=== PATIENT | male | born 1970 | race Caucasian/White ===

== ENCOUNTER 2023-01-23 08:51 | Emergency (ER) | payer BC, OTHER ==
--- OUTSIDE RECORDS SUMMARY | 2023-01-23 08:53 | XMS REPORT | Continuity of Care Document ---
:1970 Author Organization [facility] t Address [address] [place] [address] Care Team Providers Name Role Phone PCP, PATIENT DOES NOT HAVE A Primary Care Physician Unavaila MADY Aparicio Attending Clinician Unavailable Mady Parks MD Attending Clinician Payers Payer Name Policy Type Policy Number Effective Date Expiration Date [facility] [id number] 2022 PPO/POS II 00:00:00 Problems This patient has no known problems. Allergies, Adverse Reactions, Alerts Allergy Allergy Status Severity Reaction(s) Onset Inactive Treating Comm ents Source Name Type Date Date Clinician NO KNOWN Drug Active [facility] Social [facility] Social Habit Start Date Stop Date Quantity Comments Source Sex Assigned At [birth year] [facility] 00:00:00 00:00:00 [facility] Smoking Status Start Date Stop Date Source Tobacco smoking consumption [facility] Medications This patient has no known medications. Procedures This patient has no known procedures. Encounters Start End Encounter Admission Attending Care Care Encounter Source Date/Time Date/Time Type Type Clinicians Facility Department ID 2022-10-07 2022-10-07 Emergency X [facility] ERT [id number] 23:00:00 23:01:00 [facility] 2022-10-07 2022-10-07 Emergency [facility] [id number] [facility] 23:00:00 23:01:00 Mady ABDALLA [id number] [facility] [id number] [facility] [id number] [facility] [address] Results This patient has no known results.
[2023-01-23] MEDS ORDERED: KETOROLAC 30 MG/ML INJ ONE (09:30)
[2023-01-23] MEDS ORDERED: NA CHLORIDE 0.9% 1,000 ML ONE (09:30)
[2023-01-23 09:48] LABS: Absolute Lymphocytes (CBC) 1.9 K/uL (0.7-4.9); Lymphocytes % 16.7 % (15.3-44.8); MCV 98.6 fL (80-100); MPV 8.1 fL (7.6-11.3); RBC Red Blood Cell Count 4.67 M/uL (4.33-5.43)
[2023-01-23 10:03] LABS: SARS-CoV-2 Antigen Rapid Res Negative (Negative)
[2023-01-23 10:04] LABS: Albumin 4.2 g/dL (3.4-5.0); Bilirubin Total 0.7 mg/dL (0.2-1.0); Potassium 3.7 mEq/L (3.5-5.1); Protein, Total 8.5 g/dL (6.4-8.2)
[2023-01-23 10:40] LABS: Specific Gravity 1.024 (1.005-1.030); Urine Bilirubin NEGATIVE (Negative); Urine Blood Negative (Negative); Urine Clarity Clear (Clear); Urine Color Light-Yellow (Yellow); Urine Glucose NEGATIVE (Negative); Urine Protein NEGATIVE (Negative); Urine Urobilinogen Normal (Normal); Urine pH 7.5 (5.0-7.0)
--- NOTE | 2023-01-23 11:18 | RAD REPORT ---
EXAM DESCRIPTION: CT - Abdomen Pelvis W Contrast - 01/23/2023 10:20 am CLINICAL HISTORY: ABD PAIN COMPARISON: No comparisons TECHNIQUE: Thin cut axial CT imaging of the abdomen and pelvis was performed following intravenous a dministration of 95 mL Isovue 300. Multiplanar reformats were generated and reviewed. All CT scans are performed using dose optimization technique as appropriate and may include automated exposure control or mA/KV adjustment according to patient size. FINDINGS: No suspicious findings in the lung bases. The liver, spleen, and pancreas show no suspicious findings. Gallbladder and biliary tree are also wi thout suspicious finding. Symmetric renal function is seen with no hydronephrosis or suspicious renal mass. No dilated bowel loops or bowel wall thickening. Nonspecific fluid opacification throughout nondisten ded large bowel and to lesser extent short segments of distal small bowel. No free air, free fluid or inflammatory stranding. No hernia, mass or bulky lymphadenopathy. The urinary bladder is without sig nificant finding. Mild prostatomegaly. No suspicious bony findings. IMPRESSION: Nonspecific fluid opacification throughout nondistended small and large bowel, could rel ate to mild enterocolitis or diarrheal state. No other acute intra-abdominal process.
[2023-01-23] MEDS ORDERED: METRONIDAZOLE 500mg IVPB 500 MG/100 ML BAG IV ONE (11:52)
[2023-01-23] MEDS ORDERED: CEFTRIAXONE 1000 MG/VIAL ONE (11:52)
--- NOTE | 2023-01-23 12:12 | ER ---
Nurse's Notes [facility] Name: Eric Rodriguez Age: 52 yrs Sex: Male : 1970 Arrival Date: 01/23/2023 Time: 08:51 Bed 15 Private MD: Diagnosis: Infectious gastroenteritis and colitis, unspecified;Dorsalgia, unspecified Presentation: 01/23 09:05 Chief complaint: Patient states: Bilateral low back pain, constipation for about 2 ll1 weeks. Pain gets severe after eating so he hasn't eaten in two days. Coronavirus screen: Vaccine status: Patient reports being unvaccinated. Client denies travel out of the [place] in the last 14 days. At this time, the client does not indicate any symptoms associated with coronavirus-19. Ebola Screen: Patient denies travel to an Ebola-affected area in the 21 days before illness onset. Initial Sepsis Screen: Does the patient meet any 2 criteria? No. Patient's initial sepsis screen is negative. Does the patient have a suspected source of infection? Yes: Acute abdominal pain. Risk Assessment: Do you want to hurt yourself or someone else? Patient reports no desire to harm self or others. Onset of symptoms was January 10, 2023. 09:05 Method Of Arrival: Ambulatory ll1 09:05 Acuity: ARMOND 3 ll1 Triage Assessment: 09:07 General: Appears in no apparent distress. Behavior is calm, cooperative, appropriate ll1 for age. Pain: Complains of pain in B lower back Pain currently is 8 out of 10 on a pain scale. GI: Reports constipation, intolerance of food. Musculoskeletal: Circulation, motion, and sensation intact. Capillary refill < 3 seconds, Reports pain in bilateral lower back. Historical: - Allergies: 09:05 No Known Allergies; ll1 - PMHx: 09:05 None; ll1 - PSHx: 09:05 Appendectomy; hernia repair; ll1 - Immunization history:: Client reports having NOT received the Covid vaccine. - Social history:: Smoking status: Patient reports the use of cigarette tobacco products, smokes one pack cigarettes per day. Screenin:00 [facility] ED Fall Risk Assessment (Adult) History of falling in the last 3 months, ko1 including since admission No falls in past 3 months (0 pts) Confusion or Disorientation No (0 pts) Intoxicated or Sedated Yes (3 pts) Impaired Gait No (0 pts) Mobility Assist Device Used No (0 pt) Altered Elimination No (0 pt) Score/Fall Risk Level 0 - 2 = Low Risk Oriented to surroundings, Maintained a safe environment, Educated pt \T\ family on fall prevention, incl call for assistance when getting out of bed, Assessed \T\ reinforced patient's understanding of fall precautions, Provided non-skid footwear, Hourly rounding (assess needs \T\ fall precautionary measures) done, Used ambulatory aids as needed (educated on \T\ assisted with), Used gait belt as appropriate. Abuse screen: Denies threats or abuse. Denies injuries from another. Nutritional screening: No deficits noted. Tuberculosis screening: No symptoms or risk factors identified. Assessment: 10:00 General: Appears in no apparent distress. uncomfortable, Behavior is calm, cooperative, ko1 appropriate for age. Pain: Complains of pain in abdomen. Pain: Complains of pain in left low back and right low back. Neuro: No deficits noted. Neuro: De Jesus Agitation-Sedation Scale (RASS): 0 - Alert and Calm. Neuro: Level of Consciousness is awake, alert, obeys commands, Oriented to person, place, time, situation, Appropriate for age. Cardiovascular: No deficits noted. Respiratory: No deficits noted. GI: Reports constipation. : No deficits noted. EENT: No deficits noted. Derm: No deficits noted. Musculoskeletal: No deficits noted. 12:59 Reassessment: No changes from previously documented assessment. Patient and/or family ll1 updated on plan of care and expected duration. Pain level reassessed. Patient is alert, oriented x 3, equal unlabored respirations, skin warm/dry/pink. Vital Signs: 09:05 BP 115 / 94; Pulse 84; Resp 17; Temp 99.5; Pulse Ox 100% ; Weight 58.97 kg; Height 5 ll1 ft. 11 in. ; Pain 8/10; 10:40 BP 109 / 50; Pulse 80; Resp 16; Pulse Ox 99% ; ko1 12:59 BP 116 / 74; Pulse 71; Resp 16; Pulse Ox 96% ; ll1 09:05 Body Mass Index 18.13 (58.97 kg, 180.34 cm) ll1 09:05 Pain Scale: Adult ll1 ED Course: 08:54 Patient arrived in ED. mr 08:56 Siobhan Tafoya [facility]-C [facility] sb4 08:56 Yousuf Salazar MD is Attending Physician. sb4 08:58 Arm band placed on Patient placed in an exam room, on a stretcher. ll1 09:04 Jenna Santos, RN is Primary Nurse. ko1 09:07 Triage completed. ll1 09:35 Inserted saline lock: 20 gauge in right antecubital area, using aseptic technique. ko1 Blood collected. 09:41 SARS-COV-2 Antigen Rapid Sent. ko1 09:41 CBC with Diff Sent. ko1 09:41 Lipase Sent. ko1 09:41 CMP Sent. ko1 10:00 Patient has correct armband on for positive identification. Bed in low position. Call ko1 light in reach. Side rails up X 1. Provided Education on: IV start. 10:22 CT Abd/Pelvis - IV Contrast Only In Process Unspecified. EDMS 10:35 Urinalysis w/ reflexes Sent. ko1 10:40 No provider procedures requiring assistance completed. ko1 12:11 Bubba Cruz MD is Referral Physician. sb4 12:59 IV discontinued, intact, bleeding controlled, No redness/swelling at site. Pressure ll1 dressing applied. Administered Medications: 09:33 Drug: NS 0.9% IV 1000 ml Route: IV; Rate: 1 bolus; Site: right antecubital; ko1 13:00 Follow up: IV Status: Completed infusion; IV Intake: 1000ml ll1 09:33 Drug: TORadol - Ketorolac IVP 15 mg Route: IVP; Site: right antecubital; ko1 13:00 Follow up: Response: No adverse reaction ll1 11:50 Drug: Rocephin IV 1 grams Route: IV; Rate: calculated rate; Site: right antecubital; ko1 13:01 Follow up: Response: No adverse reaction; IV Status: Completed infusion; IV Intake: [id number] 11:51 Drug: metroNIDAZOLE IVPB 500 mg Volume: 100 ml; Route: IVPB; Rate: 200 ml/hr; Infused ko1 Over: 30 mins; Site: right antecubital; 13:01 Follow up: Response: No adverse reaction; IV Status: Completed infusion; IV Intake: ll1 100ml Medication: 10:00 VIS not applicable for this client. ko1 Intake: 13:00 IV: 1000ml; Total: 1000ml. ll1 13:01 IV: 10ml; Total: 1010ml. ll1 13:01 IV: 100ml; Total: 1110ml. ll1 Outcome: 12:11 Discharge ordered by . sb4 13:00 Discharged to home ambulatory. ll1 13:00 Condition: stable 13:00 Discharge instructions given to patient, Instructed on discharge instructions, follow up and referral plans. medication usage, Demonstrated understanding of instructions, follow-up care, medications, Prescriptions given X 4. 13:01 Patient left the ED. ll1 Signatures: Dispatcher [employer] EDMS Robina Granado mr Vel Evans RN RN ll1 Jenna Santos RN RN ko1 Siobhan Tafoya, PABest PABest [email or web address]
--- NOTE | 2023-01-23 12:13 | EDPHYS ---
Physician Documentation [facility] Name: Eric Rodriguez Age: 52 yrs Sex: Male : 1970 Arrival Date: 01/23/2023 Time: 08:51 Bed 15 Private MD: ED Physician Yousuf Salazar HPI: 01/23 10:06 This 52 yrs old Male presents to ER via Ambulatory with complaints of Back Pain, sb4 Constipation. 10:06 52-year-old male denies medical history presents with complaints of 2 weeks of sb4 worsening lower back pain and constipation. He states that he was able to relieve his constipation with laxatives and suppositories but his back pain has persisted. He states the back pain is worse with eating. He feels it is more internal and not musculoskeletal. He reports frequent urination but attributes that to drinking a lot of water. He denies difficulty urinating or burning during urination. The pain does not radiate down his legs but he says it does somewhat radiate around to his abdomen. He denies any history of kidney stones. Historical: - Allergies: 09:05 No Known Allergies; ll1 - PMHx: 09:05 None; ll1 - PSHx: 09:05 Appendectomy; hernia repair; ll1 - Immunization history:: Client reports having NOT received the Covid vaccine. - Social history:: Smoking status: Patient reports the use of cigarette tobacco products, smokes one pack cigarettes per day. ROS: 10:06 Constitutional: Negative for fever, chills, and weight loss, Eyes: Negative for injury, sb4 pain, redness, and discharge, ENT: Negative for injury, pain, and discharge, Cardiovascular: Negative for chest pain, palpitations, and edema, Respiratory: Negative for shortness of breath, cough, wheezing, and pleuritic chest pain, MS/Extremity: Negative for injury and deformity, Skin: Negative for injury, rash, and discoloration, Neuro: Negative for headache, weakness, numbness, tingling, and seizure. 10:06 Abdomen/GI: Positive for constipation, Negative for nausea, vomiting, and diarrhea, black/tarry stool, rectal pain, rectal bleeding. 10:06 Back: Positive for pain at rest, pain with movement, flank pain, bilaterally. Exam: 10:06 Constitutional: This is a well developed, well nourished patient who is awake, alert, sb4 and in no acute distress. Head/Face: Normocephalic, atraumatic. Eyes: Extra-ocular motions intact. Periorbital areas with no swelling, redness, or edema. Cardiovascular: Regular rate and rhythm with a normal S1 and S2. Respiratory: Lungs have equal breath sounds bilaterally, clear to auscultation and percussion. No rales, rhonchi or wheezes noted. No increased work of breathing, no retractions or nasal flaring. Abdomen/GI: Soft, non-tender, no distension. Skin: Warm, dry with normal turgor. Normal color with no rashes, no lesions, and no evidence of cellulitis. MS/ Extremity: Pulses equal, no cyanosis. Neurovascular intact. Full, normal range of motion. 10:06 Back: pain, that is moderate, ROM is painful, with all movement, normal spinal alignment noted, CVA tenderness, is noted bilaterally, vertebral tenderness, is not appreciated, muscle spasm, is not present, Straight leg raises: of both lower extremities does not illicit pain. 10:06 Neuro: Exam negative for acute changes, motor deficits, sensory deficits, cerebellar deficits, gait abnormality. Vital Signs: 09:05 BP 115 / 94; Pulse 84; Resp 17; Temp 99.5; Pulse Ox 100% ; Weight 58.97 kg; Height 5 ll1 ft. 11 in. ; Pain 8/10; 10:40 BP 109 / 50; Pulse 80; Resp 16; Pulse Ox 99% ; ko1 12:59 BP 116 / 74; Pulse 71; Resp 16; Pulse Ox 96% ; ll1 09:05 Body Mass Index 18.13 (58.97 kg, 180.34 cm) ll1 09:05 Pain Scale: Adult ll1 MDM: 08:56 Patient medically screened. sb4 10:06 Differential diagnosis: Metastatic Disease Osteoarthritis Pyelonephritis spinal injury, sb4 sprain, vertebral fracture, nephrolithiasis, covid19. 12:10 Data reviewed: vital signs, nurses notes, lab test result(s), radiologic studies, and sb4 as a result, I will discharge patient. Consideration of Admission/Observation Escalation of care including admission/observation considered. I considered the following discharge prescriptions or medication management in the emergency department Medications were administered in the Emergency Department. See MAR. Independent interpretation of the following test(s) in the Emergency Department CT Scan: My interpretation is my interpretation of the abdomen pelvis CT images are "stranding, fluid in the small bowel". Counseling: I had a detailed discussion with the patient and/or guardian regarding: the historical points, exam findings, and any diagnostic results supporting the discharge/admit diagnosis, lab results, radiology results, to return to the emergency department if symptoms worsen or persist or if there are any questions or concerns that arise at home. Medication response: Toradol markedly relieved the patient's pain. Special discussion: I discussed with the patient/guardian in detail that at this point there is no indication for admission to the hospital. It is understood, however, that if the symptoms persist or worsen the patient needs to return immediately for re-evaluation. 01/23 09:15 Order name: CBC with Diff; Complete Time: 09:55 sb4 01/23 09:15 Order name: CMP; Complete Time: 10:05 sb4 01/23 09:15 Order name: Lipase; Complete Time: 10:05 sb4 01/23 09:15 Order name: Urinalysis w/ reflexes; Complete Time: 10:41 sb4 01/23 09:15 Order name: SARS-COV-2 Antigen Rapid; Complete Time: 10:05 sb4 01/23 09:15 Order name: CT Abd/Pelvis - IV Contrast Only; Complete Time: 11:23 sb4 01/23 09:15 Order name: IV Saline Lock; Complete Time: 09:33 sb4 01/23 09:15 Order name: Labs collected and sent; Complete Time: 09:33 sb4 Administered Medications: 09:33 Drug: NS 0.9% IV 1000 ml Route: IV; Rate: 1 bolus; Site: right antecubital; ko1 13:00 Follow up: IV Status: Completed infusion; IV Intake: 1000ml ll1 09:33 Drug: TORadol - Ketorolac IVP 15 mg Route: IVP; Site: right antecubital; ko1 13:00 Follow up: Response: No adverse reaction ll1 11:50 Drug: Rocephin IV 1 grams Route: IV; Rate: calculated rate; Site: right antecubital; ko1 13:01 Follow up: Response: No adverse reaction; IV Status: Completed infusion; IV Intake: [id number] 11:51 Drug: metroNIDAZOLE IVPB 500 mg Volume: 100 ml; Route: IVPB; Rate: 200 ml/hr; Infused ko1 Over: 30 mins; Site: right antecubital; 13:01 Follow up: Response: No adverse reaction; IV Status: Completed infusion; IV Intake: ll1 100ml Disposition: 13:17 Co-signature as Attending Physician, Yousuf Salazar MD I reviewed the patient's care rn provided by the Advanced Practice Provider and agree with the diagnosis and treatment plan. Disposition Summary: 01/23/23 12:11 Discharge Ordered Location: Home sb4 Problem: an ongoing problem sb4 Symptoms: have improved sb4 Condition: Stable sb4 Diagnosis - Infectious gastroenteritis and colitis, unspecified sb4 - Dorsalgia, unspecified sb4 Followup: sb4 - With: - When: 1 week - Reason: Further diagnostic work-up, Recheck today's complaints, Re-evaluation by your physician Discharge Instructions: - Discharge Summary Sheet sb4 - Acute Back Pain, Adult sb4 - Colitis sb4 Forms: - Work release form ko1 - Medication Reconciliation Form sb4 - Thank You Letter sb4 - Antibiotic Education sb4 - Prescription Opioid Use sb4 - [email or web address] sb4 Prescriptions: - Flagyl 500 mg Oral Tablet - take 1 tablet by ORAL route every 12 hours for 7 days; 14 tablet; Refills: 0, sb4 Product Selection Permitted - Cipro 500 mg Oral Tablet - take 1 tablet by ORAL route every 12 hours for 7 days; 14 tablet; Refills: 0, sb4 Product Selection Permitted - Medrol ([place]) 4 mg Oral Tablets, Dose Pack - take 1 tablet by ORAL route as directed - follow package instructions; 1 sb4 packet; Refills: 0, Product Selection Permitted - Cyclobenzaprine 5 mg Oral Tablet - take 1 tablet by ORAL route 3 times per day As needed; 15 tablet; Refills: 0, sb4 Product Selection Permitted Signatures: Dispatcher [employer] Yousuf Collado MD MD rn Lewis, Lynsay RN RN ll1 Jenna Santos RN RN Siobhna Julian PA-C PA-C sb4
[2023-01-23 13:07] VITALS: TEMP 99.5
[2023-01-23 13:10] VITALS: BP 116/74; O2SAT 96
== END 2023-01-23 13:01 | disposition home or self-care (01) ==
LOC: ER 08:51
DX: A09 Infectious gastroenteritis and colitis, unspecified (principal); F17.210 Nicotine dependence, cigarettes, uncomplicated; Z20.822 Contact with and (suspected) exposure to COVID-19
CPT/HCPCS: 96365; 96361; 85025; 36415; 81003; 83690; 80053; 74177; 96375; 99284; 87811; Q9967; J7030; J0696